=== PATIENT | female | born 1985 | race Caucasian/White ===

== ENCOUNTER 2018-05-12 08:49 | Emergency (ER) | payer SELFPAY ==
[2018-05-12] MEDS ORDERED: Ondansetron ODT TAB* 4 MG PO ONE (09:06)
--- NOTE | 2018-05-12 09:13 | ED ---
GI/ HPI - HPI Summary HPI Summary: 32-year-old female presents nausea vomiting diarrhea for the past day. She states that her symptoms started at 3 AM. States she ate taco [place] last night. States symptoms started with diarrhea. She has generalized abdominal pain. She has two inguinal hernia repairs with mesh done in 2007. No dysuria hematuria urgency or frequency. No flank pain. No abnormal vaginal discharge. No chest pain or shortness breath. No fevers. no blood in stool. She states she has not been able to keep anything down. She has history of PCOS and fatty liver. - History of Current Complaint Chief Complaint: EDAbdPain Time Seen by Provider: 05/12/18 08:55 Stated Complaint: NAUSEA/VOMITING Hx Last Menstrual Period: couple months PCOS Pain Intensity: 8 - Allergy/Home Medications Allergies/Adverse Reactions: Allergies Allergy/AdvReac Type Severity Reaction Status Date / Time No Known Allergies Allergy Verified 05/12/18 08:53 PMH/Surg Hx/FS Hx/Imm Hx Endocrine/Hematology History: Denies: Hx Diabetes, Hx Thyroid Disease Cardiovascular History: Denies: Hx Hypertension Respiratory History: Denies: Hx Asthma, Hx Chronic Obstructive Pulmonary Disease (COPD) GI History: Denies: Hx Ulcer - Surgical History Surgery Procedure, Year, and Place: abd hernia repair Infectious Disease History: No Infectious Disease History: Denies: Hx Clostridium Difficile, Hx Hepatitis, Hx Human Immunodeficiency Virus (HIV), Hx of Known/Suspected MRSA, Hx Shingles, Hx Tuberculosis, Traveled Outside the in Last 30 Days - Family History Known Family History: Positive: Diabetes - Social History Alcohol Use: Rare Substance Use Type: Reports: None Smoking Status (MU): Never Smoked Tobacco Review of Systems Negative: Fever Negative: Chest Pain Negative: Shortness Of Breath Positive: Abdominal Pain, Vomiting, Diarrhea, Nausea All Other Systems Reviewed And Are Negative: Yes Physical Exam Triage Information Reviewed: Yes Vital Signs On Initial Exam: Initial Vitals Temp Pulse Resp BP Pulse Ox 97.4 F 72 16 153/92 98 05/12/18 08:51 05/12/18 08:51 05/12/18 08:51 05/12/18 08:51 05/12/18 08:51 Vital Signs Reviewed: Yes Appearance: Positive: Well-Appearing Skin: Positive: Warm, Dry Head/Face: Positive: Normal Head/Face Inspection Eyes: Positive: Normal, EOMI, HAYLEE, Conjunctiva Clear ENT: Positive: Pharynx normal Respiratory/Lung Sounds: Positive: Clear to Auscultation, Breath Sounds Present Cardiovascular: Positive: Normal, RRR Abdomen Description: Positive: Nontender, Soft, Other: - no inguinal hernia Bowel Sounds: Positive: Present Musculoskeletal: Positive: Normal Neurological: Positive: Normal Psychiatric: Positive: Normal Diagnostics - Vital Signs Vital Signs Temp Pulse Resp BP Pulse Ox 05/12/18 09:01 76 96 05/12/18 09:00 78 158/103 97 05/12/18 08:51 97.4 F 72 16 153/92 98 - Laboratory Result Diagrams: 05/12/18 09:13 05/12/18 09:13 Lab Statement: Any lab studies that have been ordered have been reviewed, and results considered in the medical decision making process. Re-Evaluation - Re-Evaluation First Eval Re-Evaluation Time: 10:07 Change: Improved Comment: feeling better after zofran GIGU Course/Dx - Course Course Of Treatment: 32-year-old female presents nausea vomiting diarrhea for the past day. She states that her symptoms started at 3 AM. States she ate taco [place] last night. States symptoms started with diarrhea. She has generalized abdominal pain. She has two inguinal hernia repairs with mesh done in 2007. No dysuria hematuria urgency or frequency. No flank pain. No abnormal vaginal discharge. No chest pain or shortness breath. No fevers. She states she has not been able to keep anything down. She has history of PCOS. On exam nontender abdomen. Lab work wbc normal. crp normal. urine likely contaminate. gave Zofran and feeling better. We'll prescribe Zofran. Patient understands agrees with plan. - Diagnoses Differential Diagnoses - Female: Gastroenteritis (Viral), Gastroenteritis ( Bacterial), Urinary Tract Infection, Vomiting Provider Diagnoses: Nausea vomiting and diarrhea, Elevated blood pressure reading Discharge - Sign-Out/Discharge Documenting (check all that apply): Patient Departure - Discharge Plan Condition: Good Disposition: HOME Prescriptions: Ondansetron ODT TAB* [Zofran 4 MG Odt TAB*] 4 mg PO Q6H PRN #6 tab.odt PRN Reason: Nausea Patient Education Materials: Gastroenteritis (ED) Referrals: Kalpana Casillas MD [Primary Care Provider] - Additional Instructions: Can take Zofran every 6 hours as needed for nausea Drink small amounts of fluid as tolerated When able to eat follow BRAT diet: Bananas, rice, applesauce, toast Take ibuprofen or Tylenol for pain as needed every 6 hours Follow up with primary within 5 days as blood pressure is elevated at this visit Return to ED if develop fever that does not respond to Tylenol or ibuprofen, severe abdominal pain, or any new or worsening symptoms - Billing Disposition and Condition Condition: GOOD Disposition: Home
[2018-05-12 09:24] LABS: ABS Basophils 0.1 10^3/ul (0-0.2); ABS Eosinophils 0.1 10^3/ul (0-0.6); ABS Lymphocytes 0.9 10^3/ul (1.0-4.8); ABS Monocytes 0.2 10^3/ul (0-0.8); ABS Nucleated RBC 0 10^3/ul; Hematocrit 44 % (35-47); Hemoglobin 15.5 g/dl (12.0-16.0); Lymphocyte % 14.2 % (25-47); Mean Corpuscular HGB Conc 35 g/dl (31-36); Mean Corpuscular Hemoglobin 31 pg (27-31); Mean Corpuscular Volume 87 fL (80-97); Mean Platelet Volume 7.5 um3 (7.4-10.4); Nucleated Red Blood Cells % 0.1; Platelet Count 298 10^3/ul (150-450); Red Blood Count 5.06 10^6/ul (4.00-5.40); Red Cell Distribution Width 13 % (10.5-15); White Blood Count 6.2 10^3/ul (3.5-10.8)
[2018-05-12 09:41] LABS: EGFR Non-African American 105.6 (>60)
[2018-05-12 09:49] LABS: Urine Appearance Cloudy; Urine Blood Negative (Negative); Urine Color Yellow; Urine Ketones Negative (Negative); Urine Protein 1+(30 mg/dL) (Negative); Urine Red Blood Cell Absent (Absent); Urine Specific Gravity 1.019 (1.010-1.030); Urine Urobilinogen Negative (Negative); Urine White Blood Cell 1+(6-10/hpf) (Absent)
[2018-05-12] MEDS ORDERED: O ndansetron ODT 4MG 2TAB PRPK 4 MG PAK PO ONE (10:05)
[2018-05-12] MEDS ORDERED: Ondansetron ODT TAB* 4 MG ONE (10:16)
[2018-05-12 10:18] VITALS: BP 140/92
== END 2018-05-12 10:19 | disposition home or self-care (01) ==
LOC: ED 08:49
DX: R11.2 Nausea with vomiting, unspecified (principal); R19.7 Diarrhea, unspecified; R03.0 Elevated blood-pressure reading, without diagnosis of hypertension; K76.0 Fatty (change of) liver, not elsewhere classified; E28.2 Polycystic ovarian syndrome
CPT/HCPCS: 36415; 80053; 81003; 81015; 83690; 84702; 85025; 86140; 87086; 99283; A9270-GY